=== PATIENT | female | born 1950 | race Caucasian/White ===

== ENCOUNTER → 2017-02-25 | Outpatient (CLI) | payer OTHER ==
[~2017-02-25] MED LIST: ALBUTEROL2.5 MG/0.5 INH; AMARYL PO; AMLODIPINE BES2.5 MG; BENAZEPRIL-HCTZ1 T14; DULARA; FLONASE; FLOVENT DI50 MCG/DIS INH; GLUCOSAMINE CHO1 CA2 PO; INVOKANA100 MG PO; LASIX PO; LIPITOR80 MG PO; LOTREL; METFORMIN HCL500 M1 PO; NEBULIZER; NEXIUM PO; PRADAXA150 MG PO; PREDNISONE PO; PROAIR RESPICL90 MCG; SINGULAIR PO; VITAMIN D5000 UNIT PO; VOLTAREN75 MG PO; ZITHROMAX500 MG PO
--- NOTE | ~2017-02-25 | ST ---
Unit #: [id number] #: [id number] Patient: WESTLEY YING [id number] [address] [address] [id number] O MR#: [id number] NAME: WESTLEY YING : 1950 SEX: F STUDY DATE/TIME: 02/25/2017 UNIT: [facility] ROOM: STUDY DESCRIPTION: Stress test Attending Physician: Tuyet Mace M.D. Referring Physician: Tuyet Mace M.D. Primary Care Physician: Tuyet Mace M.D. CARDIOLOGY REPORT EXAM EKG portion of a Lexiscan Cardiolite stress test. REASON FOR EXAM History of chest pain with radiation into the arm. DISCUSSION Baseline EKG reveals sinus rhythm with a ventricular rate of 69 beats per minute. Probable early repolarization. No acute ST or T wave changes. A total of 0.4 mg of Lexiscan was injected per protocol followed by Cardiolite. There were no complaints of chest pain. There were no sustained arrhythmias noted. There were no ST or T wave changes to suggest ischemia. Maximal heart rate was 99 beats per minute with maximum blood pressure of 135/71 mmHg. The test was stopped due to protocol completion. IMPRESSION 1. Negative EKG portion of Lexiscan Cardiolite stress test. 2. There were no complaints of chest pain. 3. There were no sustained arrhythmias noted. 4. There were no ST or T wave changes to suggest ischemia. 5. Please correlate with Cardiolite images. Dictated by... Brenda Mantilla APRN for Vanessa Pinedo TD: 02/25/2017 11:15 JOB #: [id number] CARDIOLOGY REPORT Page 1 of 1 X CARDIOLOGY REPORT
--- NOTE | ~2017-02-25 | TH ---
Unit #: [id number] #: [id number] Patient: WESTLEY YING [id number] [address] [address] [id number] O MR#: [id number] NAME: WESTLEY YING : 1950 SEX: F STUDY DATE/TIME: 02/25/2017 UNIT: [facility] ROOM: STUDY DESCRIPTION: Cardiolite study Attending Physician: Tuyet Mace M.D. Referring Physician: Tuyet Mace M.D. Primary Care Physician: Tuyet Mace M.D. CARDIOLOGY REPORT EXAM Lexiscan Cardiolite stress test nuclear portion. PROCEDURE Using Tc-99m labeled Cardiolite, rest and SPECT stress images were obtained. Multiple SPECT images were obtained in various views including horizontal and vertical long axis and short axis views of the left ventricle. Images were obtained by gated SPECT method. The patient was administered 11.66 mCi of Cardiolite at rest. The patient was administered 34.6 mCi of Cardiolite after Lexiscan infusion was completed. On the stress images, there is a small area of moderate decreased tracer uptake in the inferoapical wall. The rest images show normal perfusion. Comparing rest and stress images, there is suspicion for stress induced ischemia involving the inferoapical wall of the left ventricle. The left ventricular ejection fraction is calculated to be 75%. There is no focal wall motion abnormality seen. CONCLUSION 1. There is suspicion for stress induced ischemia involving the inferoapical wall of the left ventricle. 2. The left ventricular ejection fraction is calculated to be 75%. 3. There is no focal wall motion abnormality seen. 4. Abnormal Lexiscan Cardiolite stress test suggestive of possible coronary artery disease. 5. Technically limited study due to patient's body habitus. Clinical correlation is requested. Dictated by..Vanessa Ramos TD: 02/25/2017 14:21 JOB #: [id number] Unit #: [id number] #: [id number] Patient: WESTLEY YING CARDIOLOGY REPORT Page 1 of 1 X Juliet Lea MD <ELECTRONICALLY SIGNED> 04/11/17 [facility] CARDIOLOGY REPORT
== END | disposition home or self-care (01) ==
LOC: CNUC 07:47
DX: R07.89 Other chest pain (principal); R94.31 Abnormal electrocardiogram [ECG] [EKG]; R94.39 Abnormal result of other cardiovascular function study
CPT/HCPCS: 78452; 93017; A9500; J2785